=== PATIENT | female | born 1985 | race Caucasian/White ===

== ENCOUNTER 2023-12-06 12:11 | Inpatient (IN) | payer BC ==
[2023-12-06 13:02] VITALS: BMI 39.3
[2023-12-06 14:03] LABS: Creatinine, Urine 91.99 mg/dL (47-110)
[2023-12-06] MEDS: hydrALAZINE 20 MG/ML VIAL SLOW IVP PRN ×2 (14:26→16:25)
[2023-12-06 14:27] LABS: #Basophils 0.02 10x3/uL (0.0-0.2); #Eosinphils 0.24 10x3/uL (0.0-0.5); #Monocytes 0.71 10x3/uL (0.0-1.1); #Neutrophils 8.73 10x3/uL (1.5-8.4); %Basophils 0.2 % (0.0-2.0); %Eosinophils 2.2 % (0.0-6.0); %Lymphocytes 12.5 % (18.0-47.0); %Monocytes 6.4 % (0.0-10.0); %Neutrophils 78.2 % (40.0-75.0); Hematocrit 31.2 % (34.9-44.5); Hemoglobin 10.4 g/dL (12.0-15.5); Mean Corpuscular HGB CONC 33.3 g/dL (32.0-36.0); Mean Corpuscular Hemoglobin 27.6 pg (27.0-33.0); Mean Corpuscular Volume 82.8 fL (81.6-98.3); Mean Platelet Volume 9.1 fL (7.4-10.4); Platelet Count 364 10x3/uL (150-450); Red Blood Cell (RBC) Count 3.77 10x6/uL (3.90-5.03); White Blood Cell (WBC) Count 11.2 10x3/uL (3.5-10.5)
[2023-12-06 14:38] LABS: ALT (SGPT) 16 U/L (8-55); AST (SGOT) 25 U/L (5-34); Albumin 2.5 g/dL (3.5-5.0); Alkaline Phosphatase 133 U/L (40-110); Anion Gap 11 mmol/L (10-20); BUN (Urea Nitrogen) 9 mg/dL (7.0-18.7); Bilirubin, Total 0.4 mg/dL (0.2-1.2); Calc. Creatinine Clearance 207 mL/min (70-130); Carbon Dioxide 18 mmol/L (22-29); Chloride 109 mmol/L (98-107); Estimated GFR 118; Globulin 3.4 g/dL (2.4-3.5); Glucose 86 mg/dL (70-105); Potassium 3.9 mmol/L (3.5-5.1); Protein, Total 5.9 g/dL (6.0-8.3); Sodium 134 mmol/L (136-145)
[2023-12-06] MEDS ORDERED: Carboprost 250 MCG/ML AMP IM PRN (15:03)
[2023-12-06] MEDS ORDERED: Tranexamic Acid 1,000 MG/10 ML VIAL IVP PRN (15:03)
[2023-12-06] MEDS ORDERED: Misoprostol 200 MCG TAB PR PRN (15:03)
[2023-12-06] MEDS ORDERED: Diphenoxylate HCl/Atropine Tablet PO PRN (15:03)
[2023-12-06] MEDS ORDERED: hydrALAZINE 20 MG/ML VIAL SLOW IVP PRN (15:03)
[2023-12-06] MEDS: Magnesium Sulfate 20 gm/500 ml 20 GM/500 ML BAG IVPB SCH (15:05)
[2023-12-06] MEDS ORDERED: Lorazepam 2 MG/ML VIAL SLOW IVP PRN ×2 (15:08→16:51)
[2023-12-06] MEDS ORDERED: Calcium Gluc 4.6 MEQ/10 ML (100 MG/ML) SLOW IVP PRN ×2 (15:08→16:51)
[2023-12-06] MEDS ORDERED: Labetalol HCl 100 MG/20 ML VIAL SLOW IVP PRN ×3 (15:08)
[2023-12-06] MEDS: Betamet Acet/Betamet Na Ph 30 MG/5 ML VIAL IM SCH (15:10)
[2023-12-06] MEDS ORDERED: Oxytocin 30 units/NS 500 ML 500 ML IV SCH (15:15)
[2023-12-06] MEDS: Ondansetron PF 4 MG/2 ML Vial IVP PRN (15:41)
[2023-12-06 16:01] LABS: Syphilis Antibody Nonreactive (Nonreactive); Syphilis Antibody Index 0.08 S/CO (<1.00 Non-Reactive)
[2023-12-06 16:03] LABS: HBsAg Index 0.23 S/CO (0-0.99); Hep B Surf Ag - L&D Non-Reactive S/CO (NonReactive)
[2023-12-06] MEDS ORDERED: NIFEdipine 10 MG CAP PO PRN (16:51)
[2023-12-06] MEDS: NIFEdipine 10 MG CAP PO PRN (16:56)
[2023-12-06] MEDS: Labetalol HCl 200 MG TAB PO SCH (17:34)
[2023-12-06] MEDS: Promethazine HCl 25 MG/ML VIAL IM PRN (18:59)
[2023-12-06] MEDS: Acetaminophen 500 MG TAB PO PRN (19:10)
[2023-12-06] MEDS: traMADol HCl 50 MG TAB PO PRN (23:04)
[2023-12-06] MEDS: diphenhydrAMINE 25 MG CAP PO PRN (23:04)
[2023-12-07] MEDS: Labetalol HCl 200 MG TAB PO SCH (00:36)
[2023-12-07] MEDS: Lactated Ringer's 1,000 ML IV SCH (00:43)
[2023-12-07 05:02] LABS: #Basophils 0.02 10x3/uL (0.0-0.2); #Eosinphils 0.01 10x3/uL (0.0-0.5); #Monocytes 0.34 10x3/uL (0.0-1.1); #Neutrophils 11.56 10x3/uL (1.5-8.4); %Basophils 0.2 % (0.0-2.0); %Eosinophils 0.1 % (0.0-6.0); %Lymphocytes 7.2 % (18.0-47.0); %Monocytes 2.6 % (0.0-10.0); %Neutrophils 89.1 % (40.0-75.0); Hematocrit 30.5 % (34.9-44.5); Hemoglobin 10.1 g/dL (12.0-15.5); Mean Corpuscular HGB CONC 33.1 g/dL (32.0-36.0); Mean Corpuscular Hemoglobin 27.2 pg (27.0-33.0); Mean Corpuscular Volume 82.2 fL (81.6-98.3); Mean Platelet Volume 8.9 fL (7.4-10.4); Platelet Count 371 10x3/uL (150-450); RBC Distribution Width 14.3 % (11.5-14.5); Red Blood Cell (RBC) Count 3.71 10x6/uL (3.90-5.03)
[2023-12-07 05:36] LABS: ALT (SGPT) 15 U/L (8-55); AST (SGOT) 17 U/L (5-34); Albumin 2.6 g/dL (3.5-5.0); Alkaline Phosphatase 128 U/L (40-110); Anion Gap 15 mmol/L (10-20); BUN (Urea Nitrogen) 8 mg/dL (7.0-18.7); Bilirubin, Total 0.4 mg/dL (0.2-1.2); Calc. Creatinine Clearance 207 mL/min (70-130); Calcium 7.4 mg/dL (7.8-10.44); Carbon Dioxide 14 mmol/L (22-29); Chloride 106 mmol/L (98-107); Critical Call Chemistry NUR.SM9@0533; Estimated GFR 118; Globulin 3.5 g/dL (2.4-3.5); Glucose 115 mg/dL (70-105); Magnesium 5.9 mg/dL (1.6-2.6); Potassium 4.1 mmol/L (3.5-5.1); Protein, Total 6.1 g/dL (6.0-8.3); Sodium 131 mmol/L (136-145)
[2023-12-07] MEDS: NIFEdipine XL 30 MG ER.TAB PO SCH (08:27)
[2023-12-07] MEDS: Prenatal Vitamin 1 TAB PO SCH (08:27)
[2023-12-07] MEDS: NIFEdipine 10 MG CAP ONE (16:43)
[2023-12-07] MEDS: Betamet Acet/Betamet Na Ph 30 MG/5 ML VIAL ONE (16:44)
[2023-12-07] MEDS: Magnesium Sulfate 20 gm/500 ml 20 GM/500 ML BAG ONE (16:44)
[2023-12-07] MEDS: Sertraline 100 MG TAB PO SCH ×2 (16:45→21:07)
[2023-12-07] MEDS: Lactated Ringer's 500 ML IV SCH (17:25)
[2023-12-07] MEDS: Famotidine 20 MG TAB PO SCH (22:13)
[2023-12-07] MEDS: Mag-Al 1200 mg/1200 mg/30 ML UDCUP PO SCH (22:13)
[2023-12-08 04:51] LABS: Hematocrit 28.6 % (34.9-44.5); Hemoglobin 9.1 g/dL (12.0-15.5); Mean Corpuscular HGB CONC 31.8 g/dL (32.0-36.0); Mean Corpuscular Hemoglobin 26.8 pg (27.0-33.0); Mean Corpuscular Volume 84.1 fL (81.6-98.3); Mean Platelet Volume 8.9 fL (7.4-10.4); Platelet Count 350 10x3/uL (150-450); RBC Distribution Width 14.2 % (11.5-14.5); White Blood Cell (WBC) Count 12.8 10x3/uL (3.5-10.5)
[2023-12-08 04:59] LABS: ALT (SGPT) 12 U/L (8-55); AST (SGOT) 19 U/L (5-34); Albumin 2.4 g/dL (3.5-5.0); Alkaline Phosphatase 104 U/L (40-110); Anion Gap 12 mmol/L (10-20); BUN (Urea Nitrogen) 9 mg/dL (7.0-18.7); Bilirubin, Total 0.3 mg/dL (0.2-1.2); Calc. Creatinine Clearance 211 mL/min (70-130); Calcium 7.9 mg/dL (7.8-10.44); Carbon Dioxide 18 mmol/L (22-29); Chloride 108 mmol/L (98-107); Estimated GFR 118; Globulin 3.1 g/dL (2.4-3.5); Glucose 112 mg/dL (70-105); Potassium 4.3 mmol/L (3.5-5.1); Protein, Total 5.5 g/dL (6.0-8.3); Sodium 134 mmol/L (136-145)
[2023-12-08] MEDS: Famotidine 20 MG TAB PO SCH (08:56)
[2023-12-08] MEDS: Mag-Al 1200 mg/1200 mg/30 ML UDCUP PO SCH (08:57)
[2023-12-08] MEDS: Ferrous Sulfate 325 MG TAB PO SCH (17:40)
[2023-12-10 04:13] LABS: Hematocrit 28.4 % (34.9-44.5); Hemoglobin 9.2 g/dL (12.0-15.5); Mean Corpuscular HGB CONC 32.4 g/dL (32.0-36.0); Mean Corpuscular Hemoglobin 27.5 pg (27.0-33.0); Mean Corpuscular Volume 84.8 fL (81.6-98.3); Platelet Count 309 10x3/uL (150-450); Red Blood Cell (RBC) Count 3.35 10x6/uL (3.90-5.03); White Blood Cell (WBC) Count 11.5 10x3/uL (3.5-10.5)
[2023-12-10 04:20] LABS: ALT (SGPT) 15 U/L (8-55); AST (SGOT) 26 U/L (5-34); Albumin 2.3 g/dL (3.5-5.0); Alkaline Phosphatase 105 U/L (40-110); Anion Gap 13 mmol/L (10-20); BUN (Urea Nitrogen) 9 mg/dL (7.0-18.7); Bilirubin, Total 0.4 mg/dL (0.2-1.2); Calc. Creatinine Clearance 214 mL/min (70-130); Calcium 8.2 mg/dL (7.8-10.44); Carbon Dioxide 18 mmol/L (22-29); Chloride 109 mmol/L (98-107); Estimated GFR 119; Glucose 79 mg/dL (70-105); Potassium 4.2 mmol/L (3.5-5.1); Protein, Total 5.3 g/dL (6.0-8.3); Sodium 136 mmol/L (136-145)
[2023-12-10] MEDS ORDERED: Benzonatate 100 MG CAP PO PRN (07:38)
[2023-12-10] MEDS: Labetalol HCl 100 MG TAB PO SCH (08:29)
[2023-12-10] MEDS: Heparin 5,000 UNITS/ML VIAL SC SCH (08:31)
[2023-12-10] MEDS: hydrALAZINE 20 MG/ML VIAL SLOW IVP PRN (11:47)
[2023-12-10] MEDS: Labetalol HCl 200 MG TAB PO SCH (15:02)
[2023-12-11] MEDS: NIFEdipine XL 60 MG ER.TAB PO SCH (09:16)
[2023-12-11] MEDS: Dextromethorphan Polistirex 60 MG/10 ML ER.12 HR UDCUP PO SCH (12:32)
[2023-12-11] MEDS ORDERED: Lorazepam 2 MG/ML VIAL SLOW IVP PRN (12:58)
[2023-12-11] MEDS ORDERED: Calcium Gluc 4.6 MEQ/10 ML (100 MG/ML) SLOW IVP PRN (12:58)
[2023-12-11] MEDS ORDERED: Magnesium Sulfate 20 gm/500 ml 20 GM/500 ML BAG IVPB SCH ×2 (13:00)
[2023-12-11 15:52] LABS: #Basophils 0.03 10x3/uL (0.0-0.2); #Eosinphils 0.24 10x3/uL (0.0-0.5); #Monocytes 0.79 10x3/uL (0.0-1.1); #Neutrophils 8.68 10x3/uL (1.5-8.4); %Basophils 0.3 % (0.0-2.0); %Lymphocytes 15.9 % (18.0-47.0); %Monocytes 6.7 % (0.0-10.0); %Neutrophils 74.2 % (40.0-75.0); Hematocrit 31.9 % (34.9-44.5); Hemoglobin 10.3 g/dL (12.0-15.5); Mean Corpuscular HGB CONC 32.3 g/dL (32.0-36.0); Mean Corpuscular Hemoglobin 27.1 pg (27.0-33.0); Mean Corpuscular Volume 83.9 fL (81.6-98.3); Mean Platelet Volume 8.8 fL (7.4-10.4); Platelet Count 346 10x3/uL (150-450); RBC Distribution Width 14.2 % (11.5-14.5); White Blood Cell (WBC) Count 11.7 10x3/uL (3.5-10.5)
[2023-12-11 16:03] LABS: ALT (SGPT) 18 U/L (8-55); AST (SGOT) 21 U/L (5-34); Albumin 2.7 g/dL (3.5-5.0); Alkaline Phosphatase 141 U/L (40-110); Anion Gap 12 mmol/L (10-20); BUN (Urea Nitrogen) 7 mg/dL (7.0-18.7); Bilirubin, Total 0.5 mg/dL (0.2-1.2); Calc. Creatinine Clearance 191 mL/min (70-130); Calcium 8.5 mg/dL (7.8-10.44); Carbon Dioxide 20 mmol/L (22-29); Chloride 107 mmol/L (98-107); Estimated GFR 116; Globulin 2.7 g/dL (2.4-3.5); Glucose 97 mg/dL (70-105); Potassium 4.7 mmol/L (3.5-5.1); Protein, Total 5.4 g/dL (6.0-8.3); Sodium 134 mmol/L (136-145)
[2023-12-11 16:22] LABS: Creatinine, Urine Less than 20.00 mg/dL (47-110); Protein, Urine Random Quant 13 mg/dL (1-14)
[2023-12-11] MEDS ORDERED: Famotidine/PF 20 mg/2ml Vial SLOW IVP PRN (18:36)
[2023-12-11] MEDS: CEFAZOLIN 2 GM VIAL ONE (18:36)
[2023-12-11] MEDS ORDERED: Bicitra 30 ML UDCUP PO PRN (18:36)
[2023-12-11] MEDS ORDERED: CEFAZOLIN 2 GM in Sodium Chloride 0.9% 100 ML IVPB SCH (18:45)
[2023-12-11 20:03] LABS: Analyzer IN Cardio CS NICU; Critical Notified By: clumpkins rt; RapidComm Collect By LD RN
[2023-12-11 20:04] LABS: Analyzer IN Cardio CS NICU; Critical Notified By: clumpkins rt; RapidComm Collect By LD RN; pH (Cord, venous) 7.409 (7.250-7.350)
[2023-12-11] MEDS ORDERED: HYDROmorphone 0.5 MG/0.5 ML SYRINGE SLOW IVP PRN (20:09)
[2023-12-11] MEDS ORDERED: Meperidine HCl/PF 25 MG (1 mL) VIAL SLOW IVP PRN (20:09)
[2023-12-11] MEDS ORDERED: Moisturizing Cream (Eucerin) 113 GM JAR TOP PRN (20:09)
[2023-12-11] MEDS ORDERED: Ondansetron PF 4 MG/2 ML Vial IVP PRN ×2 (20:09)
[2023-12-11] MEDS ORDERED: fentaNYL 50 mcg/mL 1 mL Vial SLOW IVP PRN (20:09)
[2023-12-11] MEDS ORDERED: Naloxone HCl 0.4 mg/ml Vial IVP PRN ×2 (20:09)
[2023-12-11] MEDS ORDERED: Promethazine HCl 25 MG/ML VIAL IM PRN (20:09)
[2023-12-11] MEDS ORDERED: Naloxone HCl 0.4 mg/ml Vial IV PRN (20:09)
[2023-12-11] MEDS ORDERED: Communication Order-Pharmacy FS SCH (20:15)
[2023-12-11] MEDS: Furosemide 40 MG (4 mL) VIAL SLOW IVP SCH (20:57)
[2023-12-12] MEDS: diphenhydrAMINE 50 MG/ML VIAL IVP PRN (00:15)
[2023-12-12] MEDS: HYDROmorphone 0.5 MG/0.5 ML SYRINGE SLOW IVP SCH (02:04)
[2023-12-12 04:49] LABS: Hematocrit 29.2 % (34.9-44.5); Hemoglobin 9.3 g/dL (12.0-15.5); Mean Corpuscular HGB CONC 31.8 g/dL (32.0-36.0); Mean Corpuscular Volume 84.6 fL (81.6-98.3); Mean Platelet Volume 8.7 fL (7.4-10.4); Platelet Count 317 10x3/uL (150-450); RBC Distribution Width 14.2 % (11.5-14.5); Red Blood Cell (RBC) Count 3.45 10x6/uL (3.90-5.03); White Blood Cell (WBC) Count 14.4 10x3/uL (3.5-10.5)
[2023-12-12 05:04] LABS: ALT (SGPT) 13 U/L (8-55); AST (SGOT) 19 U/L (5-34); Albumin 2.3 g/dL (3.5-5.0); Alkaline Phosphatase 119 U/L (40-110); Anion Gap 14 mmol/L (10-20); BUN (Urea Nitrogen) 7 mg/dL (7.0-18.7); Bilirubin, Total 0.6 mg/dL (0.2-1.2); Calc. Creatinine Clearance 188 mL/min (70-130); Calcium 7.5 mg/dL (7.8-10.44); Carbon Dioxide 19 mmol/L (22-29); Chloride 103 mmol/L (98-107); Estimated GFR 115; Glucose 98 mg/dL (70-105); Potassium 4.1 mmol/L (3.5-5.1); Protein, Total 5.3 g/dL (6.0-8.3); Sodium 132 mmol/L (136-145)
[2023-12-12 05:07] LABS: Critical Call Chemistry NUR.TG4@0505
[2023-12-12] MEDS: Lactated Ringer's 250 ML IV SCH (07:30)
[2023-12-12] MEDS ORDERED: Lorazepam 2 MG/ML VIAL SLOW IVP PRN (08:15)
[2023-12-12] MEDS ORDERED: traMADol HCl 50 MG TAB PO PRN (08:15)
[2023-12-12] MEDS: Magnesium Sulfate 20 gm/500 ml 20 GM/500 ML BAG ONE (08:42)
[2023-12-12] MEDS: Morphine PF 10 MG/10 ML VIAL ONE (08:43)
[2023-12-12] MEDS: fentaNYL 50 mcg/mL 1 mL Vial ONE (08:43)
[2023-12-12] MEDS: Dextromethorphan Polistirex 60 MG/10 ML ER.12 HR UDCUP PO SCH (08:44)
[2023-12-12] MEDS: Phenylephrine 40 MG/NS 250 ML 250 ML ONE (08:44)
[2023-12-12] MEDS: Oxytocin 10 UNITS/ML VIAL ONE (08:44)
[2023-12-12] MEDS ORDERED: Labetalol HCl 200 MG TAB PO SCH (09:00)
[2023-12-12] MEDS: Labetalol HCl 100 MG TAB PO SCH ×2 (10:04→20:56)
[2023-12-12] MEDS: Magnesium Sulfate 20 gm/500 ml 20 GM/500 ML BAG IVPB SCH (10:05)
[2023-12-12 10:37] LABS: Anion Gap 15 mmol/L (10-20); BUN (Urea Nitrogen) 8 mg/dL (7.0-18.7); Calc. Creatinine Clearance 182 mL/min (70-130); Calcium 7.7 mg/dL (7.8-10.44); Carbon Dioxide 19 mmol/L (22-29); Chloride 103 mmol/L (98-107); Estimated GFR 114; Glucose 105 mg/dL (70-105); Potassium 4.2 mmol/L (3.5-5.1); Sodium 133 mmol/L (136-145)
[2023-12-12 10:58] LABS: Magnesium 5.3 mg/dL (1.6-2.6)
[2023-12-12] MEDS: HYDROcodone/Acetaminophen 5/325 mg Tablet PO PRN ×2 (14:10→19:30)
[2023-12-12] MEDS: Docusate 100 MG CAP PO PRN (14:10)
[2023-12-12] MEDS: NIFEdipine XL 30 MG ER.TAB PO SCH (20:15)
[2023-12-12] MEDS ORDERED: Labetalol HCl 100 MG TAB PO SCH (21:00)
[2023-12-13] MEDS: NIFEdipine XL 30 MG ER.TAB PO SCH (08:01)
[2023-12-13] MEDS ORDERED: NIFEdipine XL 60 MG ER.TAB PO SCH (09:00)
[2023-12-13 10:01] VITALS: BMI 39.3
[2023-12-14] MEDS: NIFEdipine XL 30 MG ER.TAB PO SCH (08:06)
[2023-12-14] MEDS: Labetalol HCl 200 MG TAB PO SCH (08:06)
[2023-12-15 07:33] VITALS: BP 142/86; TEMP 98
== END 2023-12-15 09:00 | disposition home or self-care (01) | DRG 787 ==
LOC: CSHLD/OP 12:11 → CSHLD 15:40 → CSHANTE 12-07 16:30 → CSHLD 12-11 13:00 → CSHPED 12-12 22:25
PROVIDERS: ADMIT Obstetrics & Gynecology; ATTEND Obstetrics & Gynecology
PROC: 10D00Z1 Extraction of Products of Conception, Low, Open Approach (ICD-10-PCS; principal; 2023-12-11)
PROC: 3E0334Z Introduction of Serum, Toxoid and Vaccine into Peripheral Vein, Percutaneous Approach (ICD-10-PCS; 2023-12-11)
PROC: 4A033R1 Measurement of Arterial Saturation, Peripheral, Percutaneous Approach (ICD-10-PCS; 2023-12-11)
DX: O14.14 Severe pre-eclampsia complicating childbirth (principal); O41.03X0 Oligohydramnios, third trimester, not applicable or unspecified; O13.4 Gestational [pregnancy-induced] hypertension without significant proteinuria, complicating childbirth; O99.344 Other mental disorders complicating childbirth; Z91.013 Allergy to seafood; Z79.899 Other long term (current) drug therapy; Z88.8 Allergy status to other drugs, medicaments and biological substances; F41.9 Anxiety disorder, unspecified; Z3A.28 28 weeks gestation of pregnancy; R11.0 Nausea; Z37.0 Single live birth
CPT/HCPCS: 36415; 51702; 59025; 71045; 76815; 76819; 80053; 82570; 82805; 83735; 83880; 84156; 85025; 85027; 85461; 86780; 86850; 86900; 86901; 87340; 88307; 90384; 96372; 99285; J0360; J0702; J1170; J1200; J1644; J1940; J2274; J2405; J2550; J2590; J3010; J3475; J7120